=== PATIENT | female | born 1960 | race Two or more races ===

== ENCOUNTER 2020-07-11 14:29 | Outpatient (REF) | payer OTHER, SELFPAY | END 2020-07-11 14:30 | disposition home or self-care (01) | LOC: HO.LAB 14:29 | PROVIDERS: Visit Provider Internal Medicine | DX: Z20.828 Contact with and (suspected) exposure to other viral communicable diseases (principal) | CPT/HCPCS: 87635 ==

== ENCOUNTER 2020-07-30 06:22 | Outpatient (REF) | payer OTHER, SELFPAY | END 2020-07-30 06:23 | disposition home or self-care (01) | LOC: HO.LAB 06:22 | PROVIDERS: Visit Provider Internal Medicine | DX: Z20.828 Contact with and (suspected) exposure to other viral communicable diseases (principal) | CPT/HCPCS: 87635 ==

== ENCOUNTER 2020-09-18 16:36 | Emergency (ER) | payer OTHER, SELFPAY ==
[2020-09-18 17:04] VITALS: PULSE 81; RESP 16; TEMP 36.8; O2SAT 98; BMI 37.8
--- NOTE | 2020-09-18 17:12 | ED_ITS ---
HPI - Ear Problem General Chief complaint: Ear Problems Stated complaint: Earache Time Seen by Provider: 09/18/20 16:46 Source: patient Mode of arrival: ambulatory Limitations: no limitations History of Present Illness HPI Narrative: 60-year-old female with no significant past medical history presents with right ear pain for the past 2 days. She does not complain of fevers or chills, does not have any difficulty swallowing, loss of balance or any other concerning symptoms. She denies chest pain or pressure, palpitations, shortness of breath, abdominal pain, abdominal pressure, dizziness, lightheadedness or weakness. MD Complaint: ear pain Location: right ear Duration: constant Severity: moderate Relieving factors: nothing Discharge from ear: no Treatment prior to arrival: oral analgesic Related Data Allergies Allergy/AdvReac Type Severity Reaction Status Date / Time No Known Allergies Allergy Verified 09/18/20 17:20 Review of Systems Review of Systems: Constitutional: No Fever, No Chills ENT/Mouth: No Ear Pain, No Hoarseness, No sore throat Eyes: Positive right Eye Pain, No Swelling, No Redness, No Foreign Body Cardiovascular: No Chest Pain, No SOB Respiratory: No Cough, No Dyspnea Gastrointestinal: No Nausea, No Vomiting, No Diarrhea, No abdominal Pain Genitourinary: No Dysuria, No Hematuria Musculoskeletal: No joint pain, No Myalgias, No Joint Swelling Skin: No Skin lacerations, No rash Neuro: No Weakness, No Numbness, No Paresthesias, No Loss of Consciousness, No Dizziness, No Headache Psych: No Anxiety/Panic, No Depression Heme/Lymph: no easy bruising, no Lymphadenopathy Endocrine: No Polyuria, No Polydipsia Yes all other systems are reviewed and are negative [facility] Past Medical History Attestation statement: The following information was validated with the patient. Source: old records reviewed Social History Social History Advance Directives: No Advance Directives Information Provided: Yes Physical Exam Vital Signs: Vital Signs: Last Vital Signs Temp 98.2 F 09/18/20 17:04 Pulse 81 09/18/20 17:04 Resp 16 09/18/20 17:04 Pulse Ox 98 09/18/20 17:04 Body Mass Index 37.8 Appearance: Alert. Oriented X3. No acute distress. Eyes: Pupils equal, round and reactive to light. ENT: Pharynx normal. Left ear canal and tympanic membrane visually normal, right ear canal mildly erythematous, tympanic membrane erythematous and bulging. Neck: Normal inspection. Neck supple. CVS: Normal heart rate and rhythm. Pulses normal. Respiratory: No respiratory distress. Breath sounds normal. Abdomen: Soft and nontender. Skin: Skin warm and dry. Normal skin color. Normal skin turgor. Extremities: No lower extremity edema. Neuro: No motor deficit. No sensory deficit. Course Course Course Narrative: 60-year-old female presents with right ear pain. Upon examination of bilateral ear canals, left ear is normal, right ear erythematous canal with bulging and erythematous to the tympanic membranes. Umbo and cone of light are visualized to both. Plan of care is for p.o. Augmentin and Tylenol. Patient verbalized understanding of and agrees to plan of care discharge home. medical interpreter utilized for all correspondence. Google translate utilized for discharge instructions. MDM - Ear Differential Diagnosis Differential diagnosis: Likely otitis externa, otitis media, foreign body in ear, ruptured TM and cerumen impaction Medical Records Attestation: I reviewed the patient's medical records. Lab Data Attestation: I reviewed the patient's lab results. Discharge Plan Discharge Clinical Impression: Otitis media Qualifiers: Otitis media type: suppurative Chronicity: acute Laterality: right Recurrence: non-recurrent Spontaneous tympanic membrane rupture: without spontaneous rupture Qualified Code(s): H66.001 - Acute suppurative otitis media without spontaneous rupture of ear drum, right ear Patient Disposition: Home, Self-Care Instructions: Ear Infection (ED) Additional Instructions: Te evaluaron para el dolor del o?do derecho. Tiene sandoval infecci?n del o?do derecho. Por favor, tome el antibi?victorino Augmentin dos veces al d?a palma se indica. Complete todo el curso de katy medicamento. Utilice Tylenol y Motrin para ayudar con el manejo del dolor. Si los s?ntomas persisten, por favor kevin un seguimiento con el m?dico de atenci?n primaria. Carlota por elegir katy departamento de emergencias para la evaluaci?n. Por favor, kevin un seguimiento con el m?dico de atenci?n primaria seg?n sea necesario. Regrese al servicio de urgencias para cualquier s?ntoma nuevo, preocupante o que empeore. You were evaluated for right ear pain. You have a right ear infection. Please take Augmentin antibiotic twice a day as directed. Complete the entire course of this medication. Please use Tylenol and Motrin to help with pain management. If symptoms persist please follow-up with primary care physician. Thank you for choosing this emergency department for evaluation. Please follow-up with primary care physician as needed. Return to the emergency department for any new, concerning, or worsening symptoms. Interventions: ED Discharge Assessment Last Done: 09/18/20 17:35
[2020-09-18] MEDS: Acetaminophen 325 MG TABLET 650 MG PO (17:38)
[2020-09-18] MEDS: Amoxicillin/Potassium Clav 875 MG TABLET PO (17:39)
== END 2020-09-18 17:42 | disposition home or self-care (01) ==
PROVIDERS: Emergency Provider Emergency Medicine; PCP Internal Medicine
DX: H66.001 Acute suppurative otitis media without spontaneous rupture of ear drum, right ear (principal); H92.01 Otalgia, right ear; Z79.899 Other long term (current) drug therapy
CPT/HCPCS: 99283

== ENCOUNTER 2020-09-23 11:52 | Emergency (ER) | payer OTHER, SELFPAY ==
[2020-09-23 12:46] VITALS: BP 133/67; PULSE 76; RESP 16; TEMP 36.6; O2SAT 97; BMI 31.5
--- NOTE | 2020-09-23 12:52 | ED.EAR ---
HPI - Ear Problem General Chief complaint: Ear Problems Stated complaint: ear pain x 1 week Time Seen by Provider: 09/23/20 12:51 Source: patient Mode of arrival: ambulatory History of Present Illness HPI Narrative: 60-year-old female with no significant past medical history presents to ED complaining of right ear pain x5 days. Admits seen and treated in the ED on 09/18, received 1st dose of antibiotic in the ED, however prescription was never sent to pharmacy. Reports continued pain. Denies hearing loss, drainage from her, fever, chills, sore throat Complaint: ear pain Related Data Previous Rx's Medication Instructions Recorded amoxicillin-pot clavulanate 1 tab PO Q12H 7 Days #14 tab 09/23/20 [Augmentin] Allergies Allergy/AdvReac Type Severity Reaction Status Date / Time No Known Allergies Allergy Verified 09/18/20 17:20 Review of Systems Review of Systems: Constitutional: No Weight loss, No Fever, No Chills ENT/Mouth: + Ear Pain, No Nasal Congestion, No Sinus Pain, No Hoarseness, No sore throat, No Rhinorrhea, No ear draining or hearing loss Respiratory: No Cough, No Sputum, No Wheezing Gastrointestinal: No Nausea, No Vomiting, No Diarrhea, No Abdominal pain Skin: No Skin Lesions, No rash Yes all other systems are reviewed and are negative PMFSH Past Medical History Attestation statement: The following information was validated with the patient. Social History Social History Advance Directives: No Advance Directives Information Provided: Yes Physical Exam Vital Signs: Vital Signs: Last Vital Signs Temp 97.8 F 09/23/20 12:46 Pulse 76 09/23/20 12:46 Resp 16 09/23/20 12:46 BP 133/67 09/23/20 12:46 Pulse Ox 97 09/23/20 12:46 Body Mass Index 31.5 Const: General: cooperative and healthy appearing Orientation/consciousness: patient oriented x3 Limitations: no limitations HENMT: Other: No mastoid tenderness or abnormality Head: Yes normal to inspection Ears: hearing grossly normal bilaterally, TM normal on the left and TM abnormal bulging on the right, erythematous on the right and with fluid behind the TM on the right; not perforated General nose exam: Normal external nose present Face and sinus: Yes normal facial exam Mouth: oropharynx normal and moist mucous membranes Throat: Yes posterior oropharynx normal, Yes tonsils normal and Yes uvula midline Eyes: General: appearance normal, both eyes and all related structures EOM: EOMs intact bilaterally Neck: Neck: Yes normal visual inspection and Yes no lymphadenopathy Resp: Effort & Inspection: normal respiratory effort Cardio: Rate: regular rate Skin: Rashes: no rashes Wounds: no wounds Neuro: General: patient oriented x3 Gait exam (Neuro): Normal gait present Extrem: General: Yes normal to inspection MDM - Ear MDM Narrative Medical decision making narrative: On exam VSS, NAD/well-appearing, nontoxic. Exam consistent with right otitis media. Per chart review patient was seen on 09/18, diagnosed with otitis media but does not appear prescription was sent to pharmacy. Will continue with Augmentin as patient only received 1 dose. Will give 1st dose in the ED and send remaining prescription to [facility] Differential Diagnosis Differential diagnosis: Likely otitis media Discharge Plan Discharge Clinical Impression: Otitis media Qualifiers: Otitis media type: unspecified Chronicity: acute Qualified Code(s): H66.90 - Otitis media, unspecified, unspecified ear Patient Disposition: Home, Self-Care Instructions: Ear Infection (ED) Additional Instructions: You have an inner ear infection. Augmented antibiotic, take as prescribed. In addition take Tylenol Motrin at home for pain. If her symptoms persist or worsen, you have drainage from ear, or hearing loss return to the ED Tiene sandoval infecci?n del o?do interno. Antibi?victorino aumentado, maria luz seg?n lo prescrito. Adem?s, tome Tylenol Motrin en casa para el dolor. Si aaliyah s?ntomas persisten o empeoran, tiene secreci?n del o?do o la p?rdida de audici?n regresa al servicio de urgencias Prescriptions: New amoxicillin-pot clavulanate [Augmentin] 875-125 mg tablet 1 tab PO Q12H 7 Days Qty: 14 RF: 0 Referrals: Isela Mejia MD [Primary Care Provider] - 3 days Print Language: Ukrainian
[2020-09-23] MEDS: Amoxicillin/Potassium Clav 875 MG TABLET PO (14:04)
== END 2020-09-23 14:09 | disposition home or self-care (01) ==
PROVIDERS: Emergency Provider Emergency Medicine; PCP Internal Medicine
DX: H66.91 Otitis media, unspecified, right ear (principal); H92.01 Otalgia, right ear
CPT/HCPCS: 99283